=== PATIENT | female | born 1985 | race Caucasian/White ===

== ENCOUNTER 2024-10-12 21:02 | Emergency (ER) | payer BC, SELFPAY ==
[2024-10-12 21:03] VITALS: BP 143/87
[2024-10-12 21:37] VITALS: BP 116/76
--- NOTE | 2024-10-12 21:44 | ED.GENMED ---
History of Present Illness
<Danyelle Barrett MD, Resident - Last Filed: 10/12/24 23:37>
General
Chief Complaint: Abdominal Pain
Source: patient
Exam Limitations: none
Time Seen by Provider: 10/12/24 21:33
Nursing documentation reviewed up to this point in time: agreed with
History of Present Illness
History of Present Illness:
39yo F with [facility] recent diagnosis of gallstones, s/p gastric sleeve February 2024, who presents from home to ED for nausea/abdominal pain. She has had intermittent abdominal for 2-3 months and was recently diagnosed with gallstones based on ultrasound at
[facility] on . She has a telehealth appointment tomorrow with her surgeon at [facility] to discuss timing of cholecystectomy. Today she had worsening nausea throughout the day, and severe abdominal pain that began around 8pm. The pain is worst in the
RUQ but radiates across her upper abdomen and to her back. She last ate chicken and yogurt around 6pm. She had one episode of emesis, denies bloody/coffee ground emesis. She denies fevers/chills.
Past History
<Danyelle Barrett MD, Resident - Last Filed: 10/12/24 23:37>
Past History
ED Past Medical History: Other (Preeclampsia)
ED Past Surgical History: Other (s/p sleeve gastrectomy February 2024)
Patient has exhibited threatening behavior?: No
Social History
Tobacco: Non-smoker
Alcohol: None
Drug: None
Personal:
Family History
Family History: Other (noncontributory)
Review of Systems
<Danyelle Barrett MD, Resident - Last Filed: 10/12/24 23:37>
Review of Systems
Allergies reviewed?: Yes
Constitutional: Reports no symptoms; Denies fever, fatigue or chills
EENT: Reports no symptoms
Respiratory: Reports no symptoms; Denies cough, hemoptysis or trouble breathing
Cardiac: Reports no symptoms; Denies chest pain, palpitations or syncope
ABD/GI: Reports other (see HPI)
: Reports no symptoms
Musculoskeletal: Reports no symptoms
Skin: Reports no symptoms
Neurological: Reports no symptoms
Endocrine: Reports no symptoms
Hematologic/Lymphatic: Reports no symptoms
Psychiatric: Reports no symptoms
Phy Exam
<Danyelle Barrett MD, Resident - Last Filed: 10/12/24 23:37>
General Physical Exam
General Presentation: well appearing and other (appears uncomfortable)
General age: appears stated age
General Skin: warm and dry
General Habitus: normal
General Mental: alert
General Hydration: appears well hydrated
Cardiovascular Exam
Cardiovascular Exam: regular rate/rhythm, no edema and no murmur
Pulmonary Exam
Pulmonary Exam: lungs clear, no respiratory distress, no rales, no crackles, no rhonchi, no wheezing, no cough and other (nonlabored breathing)
Gastrointestinal Exam
Gastrointestinal Exam: normal bowel sounds, soft, non distended, tender (tender to palpation worst in RUQ, positive murphys sign) and other (no rebound/rigidity/guarding)
Neurological Exam
Neurological Exam: alert, oriented x3, no motor deficits and no sensory deficits
Psychiatric Exam
Psychiatric Exam: normal mood/affect
Course
<Danyelle Barrett MD, Resident - Last Filed: 10/12/24 23:37>
Orders/Labs/Results
Orders:
Orders
10/12/24 22:01
US Abdomen Complete/Upper Urgent
Comment:
Reason For Exam: RUQ pain
10/12/24 22:02
0.9% Sodium Chloride 1000 ml [Nss] 1,000 ml IV BOLUS
Ketorolac [Toradol] 30 mg IV NOW STA
Ondansetron Injectable [Zofran] 4 mg IV NOW STA
10/12/24 22:19
Complete Blood Count/With Diff Urgent
Comprehensive Metabolic Panel Urgent
HCG, Serum Qualitative Screen Urgent
Comment: ADD ON
Lipase Urgent
10/12/24 23:04
Test Result ONCE
10/12/24 23:14
Add On- LAB Urgent
Tests Added?: serum hcg qualitative
10/12/24 23:22
Oxycodone/Acetaminophen [Percocet 5/325] 1 tablet PO NOW STA
Abnormal Lab Results
10/12/24
22:19
WBC 20.7 H 10^3/uL
(4.8-10.8)
RBC 4.09 L 10^6/uL
(4.20-5.40)
Hct 36.9 L %
(37.0-47.0)
MCH 31.3 H pg
(27.0-31.0)
Abs Immat Gran (auto) 0.1 H 10^3/uL
(0-0.05)
Absolute Neuts (auto) 17.7 H 10^3/uL
(1.4-6.5)
Absolute Monos (auto) 0.8 H 10^3/uL
(0.1-0.6)
Neutrophils % 85.6 H %
(42.2-75.2)
Lymphocytes % 9.3 L %
(20.5-51.1)
Carbon Dioxide 20 L mmol/L
(22-30)
Creatinine 0.4 L mg/dL
(0.6-1.0)
Glucose 116 H mg/dl
(70-99)
AST 128 H U/L
(14-36)
ALT 56 H U/L
(0-35)
10/12/24 22:19
10/12/24 22:19
Vital Signs
Initial and Last Documented VS:
Initial Vital Signs
Temp Pulse Resp BP Pulse Ox
97.2 F 75 17 143/87 99
10/12/24 21:03 10/12/24 21:03 10/12/24 21:03 10/12/24 21:03 10/12/24 21:03
Last Documented Vital Signs
Temp Pulse Resp BP Pulse Ox
97.2 F 69 17 104/68 99
10/12/24 21:03 10/12/24 22:30 10/12/24 22:30 10/12/24 22:06 10/12/24 21:03
<Victor Hugo Boyce, DO - Last Filed: 10/12/24 23:24>
Orders/Labs/Results
Orders:
Orders
10/12/24 22:01
US Abdomen Complete/Upper Urgent
Comment:
Reason For Exam: RUQ pain
10/12/24 22:02
0.9% Sodium Chloride 1000 ml [Nss] 1,000 ml IV BOLUS
Ketorolac [Toradol] 30 mg IV NOW STA
Ondansetron Injectable [Zofran] 4 mg IV NOW STA
10/12/24 22:19
Complete Blood Count/With Diff Urgent
Comprehensive Metabolic Panel Urgent
HCG, Serum Qualitative Screen Urgent
Comment: ADD ON
Lipase Urgent
10/12/24 23:04
Test Result ONCE
10/12/24 23:14
Add On- LAB Urgent
Tests Added?: serum hcg qualitative
10/12/24 23:22
Oxycodone/Acetaminophen [Percocet 5/325] 1 tablet PO NOW STA
Abnormal Lab Results
10/12/24
22:19
WBC 20.7 H 10^3/uL
(4.8-10.8)
RBC 4.09 L 10^6/uL
(4.20-5.40)
Hct 36.9 L %
(37.0-47.0)
MCH 31.3 H pg
(27.0-31.0)
Abs Immat Gran (auto) 0.1 H 10^3/uL
(0-0.05)
Absolute Neuts (auto) 17.7 H 10^3/uL
(1.4-6.5)
Absolute Monos (auto) 0.8 H 10^3/uL
(0.1-0.6)
Neutrophils % 85.6 H %
(42.2-75.2)
Lymphocytes % 9.3 L %
(20.5-51.1)
Carbon Dioxide 20 L mmol/L
(22-30)
Creatinine 0.4 L mg/dL
(0.6-1.0)
Glucose 116 H mg/dl
(70-99)
AST 128 H U/L
(14-36)
ALT 56 H U/L
(0-35)
10/12/24 22:19
10/12/24 22:19
Vital Signs
Initial and Last Documented VS:
Initial Vital Signs
Temp Pulse Resp BP Pulse Ox
97.2 F 75 17 143/87 99
10/12/24 21:03 10/12/24 21:03 10/12/24 21:03 10/12/24 21:03 10/12/24 21:03
Last Documented Vital Signs
Temp Pulse Resp BP Pulse Ox
97.2 F 69 17 104/68 99
10/12/24 21:03 10/12/24 22:30 10/12/24 22:30 10/12/24 22:06 10/12/24 21:03
<Danyelle Barrett MD, Resident - Last Filed: 10/12/24 23:37>
MDM/Problems Addressed
Differential Diagnosis Includes:
symptomatic cholelithiasis vs choledocolithiasis vs acute cholecystitis vs sphincter of oddi dysfunction
MDM/Problems Addressed:
39yo F with known gallstones presenting to ED with nausea and severe abdominal pain lasting 2 hours
Pain most likely related to her gallstones-- will get cbc, cmp, RUQ ultrasound to differentiate above
She does not have an acute abdomen, AFVSS
Will give toradol and zofran for symptom management and reassess pain control without opioids initially
Patient would ideally like to keep her appointment and have eventual surgery with her team at [facility]-- will reassess for discharge vs admission when above results come back and pain is better controlled
Discussed above with patient and at bedside-- they are understanding and agreeable with plan
<Danyelle Barrett MD, Resident - Last Filed: 10/12/24 23:37>
*Critical Care Note
Total Time (30-74mins, 75-104mins- exclusive of procedures): Not Applicable
<Danyelle Barrett MD, Resident - Last Filed: 10/12/24 23:37>
Update Note
Update Note:
8425: Pain is significantly improved following toradol, now describes ruq 'discomfort' rather than pain. Nausea also improved after zofran. RUQ US with no evidence of choledocholithiasis or cholecystitis. However, labs with leukocytosis 20.7 and
elevated LFTs with AST 128 and ALT 56. We did discuss this is potential sign of worsening gallbladder disease. Discussed at bedside with patient, , Dr. Boyce regarding discharge home vs hospital admission. Patient strongly prefers discharge
home as she has an 0800 appointment with her general surgeon in anticipation of cholecystectomy. She also lives with 10 minutes of ED, and states she would come back to ED immediately if need be. Return precautions reviewed in depth. Given the
above and that she feels significantly better and understands return precautions, will discharge home at this time. She is understanding and agreeable with plan.
ED Attending Note
<Danyelle Barrett MD, Resident - Last Filed: 10/12/24 23:37>
-
Portions of this chart may have been created with voice recognition software.� Occasional wrong word or��sound alike� substitutions may have occurred due to the inherent limitations of voice recognition software.
<Victor Hugo Boyce, DO - Last Filed: 10/12/24 23:24>
ED Attending Note
Patient seen and examined by attending physician: Yes
I performed a history and physical exam of patient and discussed management with resident, I reviewed resident's note and agree with documented findings and plan of care.: Yes
ED Attending Note:
I have seen and evaluated the patient with a [id number] encounter. I have spoken to the resident and involved in the medical history, the physical exam, medical decision making.
Evaluation and management service: agree unless noted differently below.
Results interpretation: agree unless noted differently below.
Focused HPI: 39-year-old female presenting with right upper quadrant pain. Patient was recently diagnosed with gallstones and was told to go to the emergency department if symptoms got worse
Physical exam: Point tenderness to right upper quadrant. No rebound
Medical Decision Making: Given history of gallstones, will obtain ultrasound to rule out any evidence of acute calculus cholecystitis. Patient has surgical evaluation tomorrow and states she feels comfortable going home if pain is controlled and no
evidence of cholecystitis
Update 11:20 PM patient feeling much better after Toradol. We discussed her leukocytosis and elevated LFTs. Ultrasound consistent with gallstones but no ultrasound evidence of acute cholecystitis. I did offer admission for surgical evaluation for
possible cholecystectomy. Patient acknowledges my concern but wants to follow-up with her surgeon tomorrow. She understands strict return precautions
Discharge Plan
Departure
Patient Disposition: Home (Routine Discharge)
Date of Disposition: 10/12/24
Time of Disposition: 23:26
Patient with high blood pressure during this ER visit?: Yes
Discharge Problem:
Cholelithiasis
Instructions: Gallstones ED, BLOOD PRESSURE
Prescriptions:
New
oxycodone 5 mg tablet
5 mg PO Q8H PRN (Reason: Pain) Qty: 7 0RF
Referrals:
Carlos Stokes DO [Family Provider] -
Activity Restrictions/Additional Instructions:
You were seen in the Emergency Room for abdominal pain and nausea.
Your ultrasound here confirmed that you have gallstones. It did not show any obstruction in your bile duct or infection in your gallbladder.
Please keep your appointment with your general surgeon at [facility] at 8:00AM tomorrow. Please discuss with your surgeon the lab results-- especially WBC 20.7, AST 128, ALT 56, Total bilirubin 0.4. Your ultrasound report is below.
If you have any worsening pain, fevers, nausea/vomiting or can't hold down food/water, please return to ED right away for reevaluation.
ULTRASOUND REPORT
FINDINGS:
LIVER: The liver is normal in size and echogenicity. The main portal vein is patent and demonstrates hepatopetal flow on color duplex evaluation. The hepatic veins appear patent and demonstrate hepatofugal flow on color duplex evaluation.
BILE DUCTS: There is no intra or extrahepatic biliary dilatation. The common bile duct measures 4.1 mm in diameter.
GALLBLADDER: There are many tiny layering gallstones in the gallbladder lumen demonstrating posterior acoustic shadowing. There is no abnormal gallbladder distention, gallbladder wall thickening, or pericholecystic fluid. The anterior gallbladder
wall measures 1.5 mm in thickness. The sonographic Mercado's sign was reportedly negative.
RETROPERITONEUM: The imaged portions of the pancreatic head, neck, and body appear normal. The pancreas is incompletely visualized secondary to adjacent bowel gas. The imaged portions of the intra-abdominal inferior vena cava appear normal. The
abdominal aorta appears normal without evidence for aneurysmal dilatation.
SPLEEN: The spleen is normal in size measuring 9.9 cm in length.
KIDNEYS: The right kidney measures 9.8 x 3.9 x 3.8 cm in size. The left kidney measures 11.4 x 4.7 x 4.4 cm in size. There is no hydronephrosis in either kidney.
There is no sonographic evidence for abdominal ascites.
IMPRESSION:
1. CHOLELITHIASIS.
2. No sonographic evidence for acute cholecystitis or biliary obstruction.
Interventions
Interventions:
*Risk Screen - Suicide Last Done: 10/12/24 21:05
*General Assessment Last Done: 10/12/24 21:05
*Neglect/Abuse Screening Last Done: 10/12/24 21:05
ED- Fall Risk Assessment Last Done: 10/12/24 22:23
*ED COVID-19 Vaccine History Last Done: 10/12/24 21:05
PF-Hqvjes-[id number] Assessment Last Done: 10/12/24 22:22
Discharge Date and Time
Print Language: MICRONESIAN
[2024-10-12 22:06] VITALS: BP 104/68
[2024-10-12] MEDS: TORADOL 30 MG IV (22:17)
[2024-10-12] MEDS: ZOFRAN 4 MG IV (22:17)
[2024-10-12] MEDS: NSS 1000 IV (22:18)
[2024-10-12 22:22] VITALS: BMI 26.4
[2024-10-12 22:36] LABS: % Basophils 0.3 % (0-2); % Eosinophils 0.6 % (0-6); % Immature Granulocytes 0.4 % (0-0.5); % Lymphocytes 9.3 % (20.5-51.1); % Monocytes 3.8 % (1.7-9.3); % Neutrophils 85.6 % (42.2-75.2); Absolute Basophils 0.1 10^3/uL (0-0.2); Absolute Eosinophils 0.1 10^3/uL (0-0.7); Absolute Immature Granulocytes 0.1 10^3/uL (0-0.05); Absolute Lymphocytes 1.9 10^3/uL (1.2-3.4); Absolute Monocytes 0.8 10^3/uL (0.1-0.6); Absolute Neutrophils 17.7 10^3/uL (1.4-6.5); Hematocrit 36.9 % (37.0-47.0); Hemoglobin 12.8 g/dL (12.0-16.0); Mean Corp Hgb Conc. 34.7 g/dL (33.0-37.0); Mean Corpuscular Hgb 31.3 pg (27.0-31.0); Mean Corpuscular Volume 90.2 fL (81.0-99.0); Nucleated Red Blood Cells % 0 %; Platelet Count 295 10^3/uL (130-400); Red Blood Cell Count 4.09 10^6/uL (4.20-5.40); Red Cell Dist. Width 12.1 % (11.5-14.5); White Blood Cell Count 20.7 10^3/uL (4.8-10.8)
[2024-10-12 22:49] LABS: ALT (SGPT) 56 U/L (0-35); AST (SGOT) 128 U/L (14-36); Albumin 4.4 g/dl (3.5-5.0); Alkaline Phosphatase 94 U/L (38-126); Blood Urea Nitrogen 17 mg/dl (7-17); Calcium 8.9 mg/dl (8.4-10.2); Carbon Dioxide 20 mmol/L (22-30); Chloride 106 mmol/L (98-107); Estimated Creatinine Clearance 104 ml/min; Glucose 116 mg/dl (70-99); Sodium 138 mmol/L (135-145); Total Bilirubin 0.4 mg/dl (0.2-1.3); Total Protein 7.1 g/dl (6.3-8.2); eGFR > 60.00
[2024-10-12 23:00] LABS: Lipase 284 U/L (23-300)
[2024-10-12] MEDS: PERCOCET 5/325 1 TABLET PO (23:38)
[2024-10-13 00:10] LABS: HCG, Serum Qualitative Screen Negative
== END 2024-10-12 23:43 | disposition home or self-care (01) ==
LOC: EMR 21:02
PROVIDERS: EMERGENCY PHYSICIAN Student in an Organized Health Care Education/Training Program; FAMILY PHYSICIAN Family Medicine
DX: K80.20 Calculus of gallbladder without cholecystitis without obstruction (principal); Z98.84 Bariatric surgery status
CPT/HCPCS: 96374; 96375; 96361; 99284; 76700; 80053; 83690; 84703; 85025